=== PATIENT | male | born 1995 ===

== ENCOUNTER 2018-06-01 12:44 | Emergency (ER) | payer OTHER ==
[2018-06-01 12:52] VITALS: BP 134/89; PULSE 92; RESP 16; TEMP 98.1; O2SAT 98
--- NOTE | 2018-06-01 13:44 | C.PDOC ---
History Of Present Illness Patient comes to ER reporting cough, congestion x 1 week and a sore throat since last night. He denies any fever or chills. Patient also denies any known sick contacts or recent foreign travels. No other complaints. Time Seen by Provider: 06/01/18 13:24 Chief Complaint (Nursing): Cough, Cold, Congestion History Per: Patient History/Exam Limitations: no limitations Onset/Duration Of Symptoms: Days Current Symptoms Are (Timing): Still Present Location Of Pain: Throat Sick Contacts (Context): None Associated Symptoms: Cough, Nasal Congestion Additional History Per: Patient Past Medical History Reviewed: Historical Data, Nursing Documentation, Vital Signs Vital Signs: Last Vital Signs Temp 98.1 F 06/01/18 12:51 Pulse 92 H 06/01/18 12:51 Resp 16 06/01/18 12:51 BP 134/89 06/01/18 12:51 Pulse Ox 98 06/01/18 12:51 - Medical History PMH: Diabetes Surgical History: No Surg Hx Family History: States: No Known Family Hx - Social History Hx Alcohol Use: No Hx Substance Use: No Review Of Systems Constitutional: Negative for: Fever, Chills ENT: Positive for: Nose Congestion, Throat Pain Cardiovascular: Negative for: Chest Pain Respiratory: Positive for: Cough. Negative for: Shortness of Breath Physical Exam - Physical Exam Appears: Non-toxic, No Acute Distress Skin: Normal Color Head: Atraumatic, Normacephalic Eye(s): bilateral: Normal Inspection Ear(s): Bilateral: Normal Nose: Normal, No Discharge Oral Mucosa: Moist Throat: Erythema Neck: Normal ROM, Supple Chest: Symmetrical Cardiovascular: Rhythm Regular Respiratory: Normal Breath Sounds Neurological/Psych: Oriented x3 ED Course And Treatment O2 Sat by Pulse Oximetry: 98 (RA) Pulse Ox Interpretation: Normal Progress Note: Patient given Amoxicillin 500mg PO and discharged home with prescriptions. Instructed to take medications as prescribed and to follow up with PMD/clinic in 2-3 days. Disposition - Disposition Referrals: Ramiro Hooper MD [Staff Provider] - Disposition: HOME/ ROUTINE Disposition Time: 13:41 Condition: STABLE Additional Instructions: FOLLOW UP WITH YOUR PMD WITHIN 1-2 DAYS. RETURN TO ED IF FEEL WORSE. Prescriptions: Amoxicillin [Amoxil 500 mg Cap] 500 mg PO Q8 #30 cap Ibuprofen [Motrin Tab] 600 mg PO Q8 #30 tab Instructions: Sore Throat in Adults Forms: [facility] (Slovak) - Clinical Impression Clinical Impression: Pharyngitis - PA / SPORTS INFORMATION DIRECTOR / Resident Statement MD/DO has reviewed & agrees with the documentation as recorded. - Scribe Statement The provider has reviewed the documentation as recorded by the Virginiaibe Isadora Rader Provider Attestation: All medical record entries made by the Virginiaiblance were at my direction and personally dictated by me. I have reviewed the chart and agree that the record accurately reflects my personal performance of the history, physical exam, medical decision making, and the department course for this patient. I have also personally directed, reviewed, and agree with the discharge instructions and disposition.
== END 2018-06-01 13:54 | disposition home or self-care (01) ==
LOC: C.ER 12:44
DX: J02.9 Acute pharyngitis, unspecified (principal)